=== PATIENT | male | born 1940 | race Caucasian/White ===

== ENCOUNTER 2022-11-24 13:28 | Emergency (ER) | payer OTHER, MEDICARE ==
[2022-11-24] MEDS ORDERED: DIPHTH,PERTUSS(ACELL),TET 0.5 ML DISP.SYRIN IM ONE ×2 (13:42→13:51)
[2022-11-24 14:07] VITALS: BP 142/80; PULSE 62; RESP 18; TEMP 98.6; BMI 35.2
== END 2022-11-24 14:41 | disposition home or self-care (01) ==
LOC: FER 13:28
PROC: 3E0234Z Introduction of Serum, Toxoid and Vaccine into Muscle, Percutaneous Approach (ICD-10-PCS; principal; 2022-11-24)
DX: S63.614A Unspecified sprain of right ring finger, initial encounter (principal); M24.841 Other specific joint derangements of right hand, not elsewhere classified; W01.0XXA Fall on same level from slipping, tripping and stumbling without subsequent striking against object, initial encounter
CPT/HCPCS: 73140-TC-RT-FY; 90471; 90715; 99283-25